=== PATIENT | female | born 1990 | race Caucasian/White ===

== ENCOUNTER 2023-03-13 20:37 | Emergency (ER) | payer BC ==
[~2023-03-13] VITALS: Ht 167.6 cm; Wt 83.9 kg
--- NOTE | 2023-03-13 21:21 | NUR ---
BIBFRIEND FROM HOME C/O ABD PAIN & N/V X THIS AM. PT AAOX4, MOVES ALL EXTREMITIES, BUT NOTED TO HAVE STIFF FINGERS BILATERALLY. LAYING IN BED, VITALS CHECKED, AWAITING MD [place].
--- NOTE | 2023-03-13 21:26 | NUR ---
PROVIDED PT WITH URINE CUP; NOT ABLE TO URINATE AT THIS TIME.
[2023-03-13] MEDS ORDERED: IV NS 0.9% 1,000 ML BAG IV ONE (21:30)
--- NOTE | 2023-03-13 21:50 | NUR ---
20GA TO RIGHT HAND ESTABLISHED; BLOOD WORK COLLECTED AND GIVEN TO [facility] [facility] SUPPORT AT BEDSIDE
[2023-03-13 22:06] LABS: BASOPHILS % (AUTO) 0.1 % (0.0-2.0); HEMATOCRIT 42 % (33-45); HEMOGLOBIN 13.8 g/dL (11.5-14.8); LYMPHOCYTES # (AUTO) 0.3 K/uL (0.8-4.8); LYMPHOCYTES % (AUTO) 2.1 % (20.0-44.0); MEAN CORPUSCULAR HGB CONC 33 g/dl (31.0-36.0); MEAN CORPUSCULAR VOLUME 91 fL (82-100); MONOCYTES # (AUTO) 0.8 K/uL (0.1-1.30); MONOCYTES % (AUTO) 6.7 % (2.0-12.0); NEUTROPHILS # (AUTO) 11.1 K/uL (1.8-8.9); NEUTROPHILS % (AUTO) 91.1 % (43.0-81.0); PLATELET COUNT (AUTO) 291 K/uL (150-450); RED BLOOD CELL COUNT(AUTO) 4.55 MIL/uL (4.0-5.2); WHITE BLOOD COUNT (AUTO) 12.2 K/uL (4.3-11.0)
[2023-03-13 22:24] LABS: CALCIUM, SERUM 9.3 mg/dL (8.5-10.1); POTASSIUM 3.3 mmol/L (3.5-5.1)
[2023-03-13] MEDS ORDERED: PANTOPRAZOLE 40 MG VIAL ONE (22:26)
[2023-03-13] MEDS ORDERED: ONDANSETRON HCL/PF 4 MG/2 ML VIAL ONE (22:26)
[2023-03-13] MEDS ORDERED: PANTOPRAZOLE 40 MG VIAL IV ONE (22:30)
[2023-03-13] MEDS ORDERED: ONDANSETRON HCL/PF 4 MG/2 ML VIAL IVP ONE (22:30)
[2023-03-13 22:31] LABS: ALBUMIN 3.8 g/dL (3.4-5.0); BILIRUBIN,DIRECT 0.2 mg/dL (0.0-0.2); BILIRUBIN,TOTAL 1.1 mg/dL (0.2-1.0); TOTAL PROTEIN, SERUM 7.6 g/dL (6.4-8.2)
[2023-03-13] MEDS ORDERED: IV NS 0.9% 250 ML IV ONE (22:50)
[2023-03-13] MEDS ORDERED: CT SWABBABLE VALVE TRANS SET 1 EA INFUS.SET MC ONE (22:50)
[2023-03-13] MEDS ORDERED: IOHEXOL-300 100 ML VIAL IV ONE (22:50)
--- NOTE | 2023-03-13 23:18 | NUR ---
LISSY/FRIEND [phone]
--- NOTE | 2023-03-13 23:33 | NUR ---
PT TAKEN TO CT W/ TECH
--- NOTE | 2023-03-13 23:43 | NUR ---
PT BACK FROM CT
--- NOTE | 2023-03-13 23:43 | NUR ---
URINE COLLECTED, SENT TO LAB
[2023-03-14 00:05] LABS: BILIRUBIN,URINE 1+ (NEGATIVE); COLOR,URINE YELLOW (YELLOW); LEUKOCYTE ESTERASE ,URINE TRACE (NEGATIVE); NITRITE, URINE NEGATIVE (NEGATIVE); PROTEIN,URINE 1+ mg/dl (NEGATIVE); UGLUCOSE NEGATIVE (NEGATIVE); UROBILINOGEN,URINE 0.2 EU/dL (0.2)
[2023-03-14 00:08] LABS: BACTERIA,URINE Rare /HPF (None Seen); SQUAMOUS EPITHELIAL CELL,UR Few /HPF (None Seen)
[2023-03-14] MEDS ORDERED: POTASSIUM CHLORIDE 20 MEQ TAB.PRT.SR PO ONE ×2 (00:29→00:30)
[2023-03-14] MEDS ORDERED: ONDA4TAB11 PO ×2 (00:39→00:42)
[2023-03-14] MEDS ORDERED: NITR100C6 PO ×2 (00:39→00:42)
--- NOTE | 2023-03-14 00:55 | NUR ---
Patient discharged to home in stable condition. Written and verbal after care instructions given. Patient verbalizes understanding of instruction. IV removed. Catheter intact and site benign. Pressure and 4x4 applied to site. No bleeding noted.
[2023-03-14 01:12] VITALS: BP 110/68; TEMP 98.5; O2SAT 98
== END 2023-03-14 01:10 | disposition home or self-care (01) ==
LOC: ER 20:42
DX: N39.0 Urinary tract infection, site not specified (principal); F17.200 Nicotine dependence, unspecified, uncomplicated; Z60.2 Problems related to living alone; Z91.040 Latex allergy status; Z88.1 Allergy status to other antibiotic agents
CPT/HCPCS: 99285; 74177; 96374; 96361; 96375; 85025; 80048; 83690; 80076; 84703; 81001; 36415; J2405; J7030; J7050; C9113; Q9967